=== PATIENT | male | born 1985 | race Caucasian/White ===

== ENCOUNTER 2021-04-18 19:55 | Emergency (ER) | payer BC ==
[~2021-04-18] VITALS: Ht 190.5 cm; Wt 115.9 kg
[2021-04-18] MEDS ORDERED: LIPITOR20 M2 PO (20:31)
[2021-04-18] MEDS ORDERED: LANTUS PEN100 U/ML SQ (20:31)
[2021-04-18] MEDS ORDERED: XANAX 1MG1 MG PO (20:32)
[2021-04-18] MEDS ORDERED: CELEXA 20MG20 MG/TA1 PO (20:32)
[2021-04-18] MEDS ORDERED: VASCEPA1 GM PO (20:32)
[2021-04-18] MEDS ORDERED: CEPHALEXIN500 M1 PO (21:02)
[2021-04-18 21:10] VITALS: BP 133/80
== END 2021-04-18 21:10 | disposition home or self-care (01) ==
LOC: ED 19:55
DX: S91.312A Laceration without foreign body, left foot, initial encounter (principal); E11.9 Type 2 diabetes mellitus without complications; E78.5 Hyperlipidemia, unspecified; Z79.4 Long term (current) use of insulin; Z79.899 Other long term (current) drug therapy; W26.8XXA Contact with other sharp object(s), not elsewhere classified, initial encounter
CPT/HCPCS: J0696